=== PATIENT | female | born 1955 | race Caucasian/White ===

== ENCOUNTER 2020-05-29 14:03 | Emergency (ER) | payer MEDICARE, MEDICAID, SELFPAY ==
--- NOTE | ~2020-05-29 | XR_ITS ---
EXAMINATION: XR forearm LT 2V EXAM DATE: 05/29/2020 16:28 INDICATION: Initial encounter following injury, with pain of the left arm. TECHNIQUE: Left forearm frontal and lateral projections obtained and reviewed. There is no prior drew dy for comparison. FINDINGS: There are no acute left forearm fractures or dislocations identified. There is no subcutan eous gas. The soft tissue is unremarkable. There are no radiopaque foreign bodies. IMPRESSION: 1. Left forearm exam without acute osseous findings. Reviewed, dictated and finalized at location A. ERIES ENFORCEMENT OFFICER
--- NOTE | ~2020-05-29 | XR_ITS ---
EXAMINATION: XR femur LT min 2V EXAM DATE: 05/29/2020 16:27 INDICATION: Initial encounter following injury, with pain of the left femur. TECHNIQUE: Left femur frontal and lateral projections of the proximal aspect, frontal and lateral pro jections of the lower aspect for review. There is no prior study for comparison. FINDINGS: There is old left inferior ramus fracture. There is severe left knee, mild left hip primary osteoarthritis. There are no acute fractures or dislocations identified. There is no subcutaneous g as. There are arterial calcifications, arteriosclerosis. There are no radiopaque foreign bodies. IMPRESSION: 1. Left femur exam without acute osseous findings. 2. Severe left knee osteoarthritis. Reviewed, dictated and finalized at location A. RETAILER
--- NOTE | ~2020-05-29 | XR_ITS ---
EXAMINATION: XR humerus LT EXAM DATE: 05/29/2020 16:27 INDICATION: Left arm pain. Several recent falls. Initial encounter. TECHNIQUE: Orthogonal projections left humerus. Correlation is made to left forearm exam same date. FINDINGS: There are no acute left humerus fractures or dislocations identified. There is no subcutan eous gas. The soft tissue is unremarkable. Hardware with left humeral plate, supporting screws, in tact. IMPRESSION: 1. Left humerus exam without acute osseous findings. 2. Intact humeral hardware. Reviewed, dictated and finalized at location A. ING MACHINE OPERATOR ELECTRO GAS
[2020-05-29 14:04] VITALS: BP 171/72; PULSE 63; RESP 12; O2SAT 100
--- NOTE | 2020-05-29 14:17 | PC.NURSE ---
Per longterm RN pt has schizophrenia, bi polar and dementia. Last right arm xray was about 1.5 weeks ago and it was clear. Nurse is requesting a BHU.RN reports behavior has worsened over the last month. RNs name was Salty.
--- NOTE | 2020-05-29 14:30 | PC.NURSE ---
Pt yelling help in the room. Pt checked on and just lying in the bed with no complaints once checked on.
[2020-05-29 15:03] LABS: Add Urine Microscopic? NO; Appearance Urine Clear (Clear); Bilirubin Urine Negative (Negative); Blood Urine Negative (Negative); Color Urine Straw (Yellow); Glucose Urine UA Negative (Negative); Ketones Urine Negative (Negative); Leukocyte Esterase Ur Negative LEU/UL (Negative); Nitrate Urine Negative (Negative); Protein Urine Negative (Negative); Specific Grav Ur 1.013 (1.001-1.035); Urobilinogen Urine Negative mg/dL (<2.0)
--- NOTE | 2020-05-29 15:17 | PC.NURSE ---
ARPITA called ED to update us on her. YFNSaurabh said pt has hx of having a fracture in left arm needing surgery and since then she always says she broke an arm. YFNSaurabh states Jodi is mentally challenged and has hx of dementia and psychiatric emotional dx. ARPITA states her behavior has changed greatly since she was diagnosed with Dementia 1 year ago. ARPITA would like to be updated. Kadi Stiles [phone]
[2020-05-29 15:31] LABS: Basophils Percent Auto 0.7 % (0.2-1.2); Eosinophils Absolute Auto 0.2 K/mm3 (0-0.3); Eosinophils Percent Auto 3.8 % (0-4.4); Hematocrit 30.9 % (37.0-47.0); Hemoglobin 10.6 g/dL (12.0-15.0); Immature Granulocyte Absolute 0.04 K/mm3 (0.00-0.031); Immature Granulocyte Percent A 0.9 % (0-0.5); Lymphocytes Absolute Auto 1.01 K/mm3 (0.9-3.2); Lymphocytes Percent Auto 22.5 % (18.3-44.2); Mean Corpuscular HGB Conc 34.3 g/dl (32-36); Mean Corpuscular Volume 96.3 fl (80-100); Mean Platelet Volume 10.1 fl (7.4-10.4); Monocytes Absolute Auto 0.6 K/mm3 (0.1-0.6); Monocytes Percent Auto 14.3 % (2.6-8.5); Neutrophils Absolute Auto 2.6 K/mm3 (1.3-6.7); Neutrophils Percent Auto 57.8 % (45.5-73.1); Platelet Count Result 161 k/mm3 (150-375); Red Blood Count 3.21 M/mm3 (4.2-5.4); Red Cell Distribution Width 12.6 % (11.5-14.5); White Blood Count 4.5 K/mm3 (4.5-10.0)
[2020-05-29 15:43] LABS: Alanine Aminotransferase 21 U/L (4-35); Albumin Level 3.5 g/dL (3.5-5.1); Alkaline Phosphatase 79 U/L (38-126); Anion Gap 5 mmol/L (8-16); Aspartate Amino Transferase 31 U/L (14-36); Bilirubin,Total 0.3 mg/dL (0.2-1.3); Blood Urea Nitrogen 16 mg/dL (7-17); Calcium 8.5 mg/dL (8.4-10.2); Carbon Dioxide 31 mmol/L (22-30); Chloride 98 mmol/L (98-107); Estimated CRCL calculation 60 ml/min; Estimated Glomerular Filt Rate > 60; Glucose 108 mg/dL (65-105); Potassium 3.8 mmol/L (3.4-5.0); Sodium 134 mmol/L (137-145)
--- NOTE | 2020-05-29 16:14 | ED.FALL ---
HPI - Fall General Chief Complaint: Fall Stated Complaint: R ARM PAIN History of Present Illness HPI Narrative: Brought in by EMS from senior living for left arm pain. She reports that she fainted and thinks that she broke her arm. She reports pain all over. She is not able to provide any additional useable history. [facility] called to say that they believe she is throwing herself on the floor intentionally. They believe that this is the result of her psychiatric disorder. They think that she may be a danger to herself and need psychiatric treatment. Related Data Home Medications Medication Instructions Recorded Confirmed acetaminophen 325 mg capsule 325 mg PO Q6H PRN 05/28/20 aspirin 81 mg tablet,delayed 81 mg PO DAILY 05/28/20 release buspirone 15 mg tablet 15 mg PO TID 05/28/20 cholecalciferol (vitamin D3) 25 25 mcg PO DAILY 05/28/20 mcg (1,000 unit) capsule divalproex 250 mg tablet,delayed 250 mg PO TID tablet 05/28/20 release docusate sodium 100 mg capsule 100 mg PO DAILY 05/28/20 donepezil 10 mg tablet 10 mg PO ONCE 05/28/20 escitalopram oxalate 10 mg tablet 15 mg PO DAILY tablet 05/28/20 ferrous sulfate 325 mg (65 mg 325 mg PO DAILY 05/28/20 iron) tablet,delayed release iloperidone 6 mg tablet 6 mg PO BID 05/28/20 memantine 10 mg tablet 10 mg PO BID 05/28/20 nebivolol 10 mg tablet 10 mg PO DAILY 05/28/20 oxcarbazepine 150 mg tablet 75 mg PO BID tablet 05/28/20 quetiapine 50 mg tablet 50 mg PO DAILY tablet 05/28/20 simvastatin 40 mg tablet 40 mg PO DAILY 05/28/20 Allergies Allergy/AdvReac Type Severity Reaction Status Date / Time No Known Allergies Allergy Unknown Unverified 11/01/16 07:51 Review of Systems Review of Systems: ROS unobtainable: Yes other (unrelieble due to psychiatric disorder) Cardiovascular: Cardiovascular: Denies chest pain Respiratory: Respiratory: Denies dyspnea Neurologic: Reports syncope [facility] Past Medical History Medical History (Updated 05/30/20 @ 00:00 by Background Daemon) Gastro-esophageal reflux disease without esophagitis Mild intellectual disabilities Schizoaffective disorder, bipolar type Family History Family History Mother Family history of diabetes mellitus in first degree relative Family history of heart disease in male family member before age 55 Patient's mother is Father Family history of diabetes mellitus in first degree relative Family history of heart disease in male family member before age 55 Social History Social History Smoking status: Never smoker Alcohol intake: never Exam Const: General: healthy appearing, no acute distress and alert Orientation/consciousness: patient oriented x3 HENMT: Head: normal to inspection Eyes: Pupils: Equal, round and reactive pupils present EOM: EOMs intact bilaterally Neck: Neck: normal visual inspection and no lymphadenopathy Chest: Chest palpation & inspection: no tenderness Resp: Effort & Inspection: normal respiratory effort Auscultation: clear to auscultation bilaterally, no rales, no rhonchi and no wheezes Cardio: Jugular venous distension: no JVD Rate: regular rate Rhythm: regular rhythm Heart sounds: no murmurs GI: Inspection: non-distended GI Palp: Yes Soft to palpation and No Tenderness to palpation present (GI) Skin: General skin exam: normal color Other: excoriations to bilateral arms Neuro: General: patient oriented x3 and moves all extremities Speech: normal speech Extrem: General: normal to inspection and no edema Psych: Appearance: well kempt Affect: normal affect Course Vital Signs Vital signs: Vital Signs Pulse Rate 63 05/29/20 14:04 Respiratory Rate 12 05/29/20 14:04 Blood Pressure 171/72 H 05/29/20 14:04 Pulse Oximetry 100 05/29/20 14:04 Pulse Rate 62 05/29/20 20:22 Respi
[2020-05-29 16:18] LABS: Amphetamine Screen Urine Negative (Negative); Barbiturate Screen Urine Negative (Negative); Benzodiazepines Screen Urine Negative (Negative); Cannabinoid Screen Urine Negative (Negative); Cocaine Screen Urine Negative (Negative); Methadone Screen Urine Negative (Negative); Opiate Screen Urine Negative (Negative); Phencyclidine Screen Urine Negative (Negative)
[2020-05-29 17:00] VITALS: BP 169/65; PULSE 62; O2SAT 100
[2020-05-29 17:07] LABS: Ethanol < 10 mg/dL (<10)
[2020-05-29 18:42] VITALS: BP 155/74; PULSE 55; O2SAT 100
--- NOTE | 2020-05-29 20:00 | PC.NURSE ---
[facility] facility to give report. 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 Charge nurse made aware
[2020-05-29 20:22] VITALS: BP 126/51; PULSE 62; RESP 18; O2SAT 99
== END 2020-05-29 20:40 ==
PROVIDERS: Emergency Provider Emergency Medicine; PCP Internal Medicine
DX: M79.602 Pain in left arm (principal); F25.0 Schizoaffective disorder, bipolar type; K21.9 Gastro-esophageal reflux disease without esophagitis; F79 Unspecified intellectual disabilities; Z79.82 Long term (current) use of aspirin; X83.8XXA Intentional self-harm by other specified means, initial encounter; Z79.899 Other long term (current) drug therapy
CPT/HCPCS: 36415; 73060; 73090; 73552; 80053; 80307; 81003; 84443; 85025; 99284

== ENCOUNTER 2020-07-09 17:27 | Outpatient (NON) | payer MEDICARE, SELFPAY ==
[2020-07-09 17:49] LABS: Hematocrit 28.9 % (35.0-49.0); Hemoglobin 9.8 g/dL (12.0-15.0); Mean Corpuscular HGB Conc 33.9 g/dL (32.0-36.0); Mean Corpuscular Hemoglobin 31.9 pg (27.0-31.0); Mean Corpuscular Volume 94.1 fL (78.0-102.0); Platelet Count Result 162 K/mm3 (150-420); Red Blood Count 3.07 M/mm3 (4.20-5.40); White Blood Count 5.6 K/mm3 (4.8-10.8)
[2020-07-09 17:52] LABS: Anion Gap 8 mmol/L (8-16); Blood Urea Nitrogen 11 mg/dL (7-18); Calcium 8.1 mg/dL (8.5-10.1); Carbon Dioxide 25 mmol/L (21-32); Chloride 93 mmol/L (98-108); Estimated Glomerular Filt Rate > 60; Glucose 109 mg/dL (70-99); Osmolality Calculated 262 mOsm/kg (285-295); Potassium 4.3 mmol/L (3.5-5.1); Sodium 126 mmol/L (136-145)
[2020-07-09 20:00] LABS: Band Neutrophils Percent 0 % (0-6); Lymphocytes Absolute Manual 0.89 K/mm3 (1.1-4.5); Lymphocytes Percent Manual 16 % (18-44); Monocytes Absolute Manual 0.78 K/mm3 (0.1-0.90); Monocytes Percent Manual 14 % (3-9); Myelocytes Percent 1 %; Neutrophils Absolute Manual 3.86 K/mm3 (1.7-7.2); Neutrophils Percent Manual 69 % (46-73); Platelet Estimate Adequate (Adequate); Total Cells Counted 100
== END 2020-07-09 17:28 ==
PROVIDERS: Visit Provider Internal Medicine
DX: N39.0 Urinary tract infection, site not specified (principal)
CPT/HCPCS: 36415; 80048; 85025

== ENCOUNTER 2020-07-12 10:54 | Outpatient (NON) | payer MEDICARE, SELFPAY ==
[2020-07-12 11:19] LABS: Hemoglobin 9.8 g/dL (12.0-15.0); Mean Corpuscular HGB Conc 33.8 g/dL (32.0-36.0); Mean Corpuscular Hemoglobin 32.6 pg (27.0-31.0); Mean Corpuscular Volume 96.3 fL (78.0-102.0); Mean Platelet Volume 9.8 fl (9.2-11.8); Platelet Count Result 161 K/mm3 (150-420); Red Blood Count 3.01 M/mm3 (4.20-5.40); Red Cell Distribution Width 12.4 % (11.6-14.4); White Blood Count 4.5 K/mm3 (4.8-10.8)
[2020-07-12 11:35] LABS: Hemoglobin A1C 5.2 % (<5.7)
[2020-07-12 11:44] LABS: Anion Gap 7 mmol/L (8-16); Blood Urea Nitrogen 13 mg/dL (7-18); Calcium 8.6 mg/dL (8.5-10.1); Carbon Dioxide 26 mmol/L (21-32); Chloride 98 mmol/L (98-108); Cholesterol 127 mg/dL (0-200); Estimated Glomerular Filt Rate > 60; Glucose 96 mg/dL (70-99); HDL Direct 68 mg/dL (40-60); LDL Cholesterol Calculated 52 mg/dL (<130); Osmolality Calculated 272 mOsm/kg (285-295); Potassium 4.3 mmol/L (3.5-5.1); Sodium 131 mmol/L (136-145); Thyroid Stimulating Hormone 0.84 uIU/mL (0.36-3.74); Triglycerides 34 mg/dL (0-150)
[2020-07-12 12:41] LABS: Neutrophils Percent Manual 51 % (46-73); Total Cells Counted 100
[2020-07-12 12:42] LABS: Band Neutrophils Percent 0 % (0-6); Basophils Absolute Manual 0.04 K/mm3 (0-0.1); Basophils Percent Manual 1 % (0-1); Eosinophils Absolute Manual 0.09 K/mm3 (0.02-0.5); Eosinophils Percent Manual 2 % (1-6); Lymphocytes Absolute Manual 1.08 K/mm3 (1.1-4.5); Lymphocytes Percent Manual 24 % (18-44); Metamyelocytes Percent 0 %; Monocytes Absolute Manual 0.94 K/mm3 (0.1-0.90); Monocytes Percent Manual 21 % (3-9); Myelocytes Percent 1 %; Neutrophils Absolute Manual 2.29 K/mm3 (1.7-7.2)
[2020-07-12 12:43] LABS: Platelet Estimate Adequate (Adequate)
[2020-07-14 22:40] LABS: T4 Thyroxine 4.6 mcg/dL (5.1-11.9)
[2020-07-17 13:34] LABS: Total Triiodothyronine (T3) 96 ng/dL (76-181)
== END 2020-07-12 10:55 ==
LOC: CHSLAB 10:55
PROVIDERS: Visit Provider Internal Medicine
DX: D64.9 Anemia, unspecified (principal); E87.0 Hyperosmolality and hypernatremia; Z79.899 Other long term (current) drug therapy
CPT/HCPCS: 36415; 80048; 80061; 80164; 83036; 84436; 84443; 84480; 85025

== ENCOUNTER 2020-07-19 11:02 | Outpatient (NON) | payer MEDICARE, SELFPAY ==
[2020-07-19 11:28] LABS: Anion Gap 6 mmol/L (8-16); Blood Urea Nitrogen 16 mg/dL (7-18); Calcium 8.3 mg/dL (8.5-10.1); Carbon Dioxide 29 mmol/L (21-32); Chloride 95 mmol/L (98-108); Estimated Glomerular Filt Rate > 60; Glucose 74 mg/dL (70-99); Osmolality Calculated 270 mOsm/kg (285-295); Potassium 4.3 mmol/L (3.5-5.1); Sodium 130 mmol/L (136-145)
== END 2020-07-19 11:03 ==
PROVIDERS: Visit Provider Internal Medicine
DX: R79.89 Other specified abnormal findings of blood chemistry (principal)
CPT/HCPCS: 36415; 80048

== ENCOUNTER 2020-08-12 10:33 | Outpatient (NON) | payer MEDICARE, SELFPAY ==
[2020-08-12 11:40] LABS: Thyroid Stimulating Hormone 1.87 uIU/mL (0.36-3.74)
== END 2020-08-12 10:34 ==
LOC: CHSLAB 10:35
PROVIDERS: Visit Provider Internal Medicine
DX: E78.5 Hyperlipidemia, unspecified (principal); I10 Essential (primary) hypertension; F33.9 Major depressive disorder, recurrent, unspecified; F41.9 Anxiety disorder, unspecified; F20.0 Paranoid schizophrenia; K21.9 Gastro-esophageal reflux disease without esophagitis
CPT/HCPCS: 36415; 84439; 84443

== ENCOUNTER 2020-08-25 16:41 | Outpatient (NON) | payer MEDICARE, SELFPAY ==
[2020-08-25 17:07] LABS: Add Urine Microscopic? YES; Appearance Urine Clear (Clear); Bilirubin Urine Negative (Negative); Blood Urine Negative (Negative); Color Urine Yellow (Yellow); Glucose Urine UA Negative (Negative); Ketones Urine Negative (Negative); Leukocyte Esterase Ur Negative LEU/UL (Negative); Nitrate Urine Negative (Negative); Protein Urine Negative (Negative); pH Urine 6.5 (5.0-8.0)
[2020-08-25 17:40] LABS: Bacteria Urine Trace /hpf; RBC Urine None seen /hpf (0-2); Squamous Epithelial Cell Urine Rare /hpf (Few); WBC Urine None seen /hpf (0-3)
== END 2020-08-25 16:42 ==
PROVIDERS: PCP Internal Medicine; Visit Provider Internal Medicine
DX: R41.82 Altered mental status, unspecified (principal)
CPT/HCPCS: 81001

== ENCOUNTER 2020-08-30 16:14 | Emergency (ER) | payer MEDICARE, MEDICAID, SELFPAY ==
[2020-08-30 16:24] VITALS: BP 160/69; PULSE 64; RESP 18; TEMP 36.4; O2SAT 100
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
[2020-08-30 16:53] LABS: Basophils Percent Auto 0.8 % (0.2-1.2); Eosinophils Absolute Auto 0.1 K/mm3 (0-0.3); Eosinophils Percent Auto 1.4 % (0-4.4); Hematocrit 31.6 % (37.0-47.0); Immature Granulocyte Absolute 0.05 K/mm3 (0.00-0.031); Lymphocytes Absolute Auto 0.95 K/mm3 (0.9-3.2); Lymphocytes Percent Auto 19.5 % (18.3-44.2); Mean Corpuscular HGB Conc 34.8 g/dl (32-36); Mean Corpuscular Hemoglobin 32.8 pg (26-34); Mean Corpuscular Volume 94.3 fl (80-100); Mean Platelet Volume 9.1 fl (7.4-10.4); Monocytes Absolute Auto 0.9 K/mm3 (0.1-0.6); Monocytes Percent Auto 17.5 % (2.6-8.5); Neutrophils Absolute Auto 2.9 K/mm3 (1.3-6.7); Neutrophils Percent Auto 59.8 % (45.5-73.1); Platelet Count Result 144 k/mm3 (150-375); Red Blood Count 3.35 M/mm3 (4.2-5.4); Red Cell Distribution Width 13.1 % (11.5-14.5); White Blood Count 4.9 K/mm3 (4.5-10.0)
[2020-08-30 17:04] LABS: Anion Gap 7 mmol/L (8-16); Blood Urea Nitrogen 17 mg/dL (7-17); Calcium 8.6 mg/dL (8.4-10.2); Carbon Dioxide 27 mmol/L (22-30); Chloride 97 mmol/L (98-107); Estimated CRCL calculation 61 ml/min; Estimated Glomerular Filt Rate > 60; Glucose 106 mg/dL (65-105); Potassium 3.7 mmol/L (3.4-5.0); Sodium 131 mmol/L (137-145)
[2020-08-30 17:51] LABS: Valproic Acid 76.4 ug/mL (50-120)
[2020-08-30 18:14] LABS: Add Urine Microscopic? NO; Appearance Urine Clear (Clear); Bilirubin Urine Negative (Negative); Blood Urine Negative (Negative); Color Urine Straw (Yellow); Glucose Urine UA Negative (Negative); Ketones Urine Negative (Negative); Leukocyte Esterase Ur Negative LEU/UL (Negative); Nitrate Urine Negative (Negative); Protein Urine Negative (Negative); Specific Grav Ur 1.014 (1.001-1.035); Urobilinogen Urine Negative mg/dL (<2.0)
[2020-08-30] MEDS: OLANZapine DISPERTAB 5 MG 10 MG PO (18:14)
[2020-08-30 18:34] VITALS: BP 167/71; PULSE 67; RESP 18; O2SAT 98
[2020-08-30] MEDS: traZODone HCL 50 MG TABLET PO (18:59)
--- NOTE | 2020-08-30 19:00 | PC.NURSE ---
[facility] accepted return to [facility] trip # [id number]
--- NOTE | 2020-08-30 19:44 | PC.NURSE ---
Bedside report received from [facility]. Pt resting comfortably on stretcher. Denies needs at present. When pt asked why she was here, states they said I was cussing! . Pt calm at present.
--- NOTE | 2020-08-30 20:30 | PC.NURSE ---
Pt yelling out room 3 room 3 room 3 . Reoriented and made aware that awaiting EMS arrival to return her to home.
--- NOTE | 2020-08-30 21:10 | PC.NURSE ---
Pt noted to be [place], naked on bed, diaper noted on floor. Bed alarm remains in place, call light close. Pt offered drink and bathroom, and refuses. Pt again states room 3 room 3 room 3 repeatedly.
--- NOTE | 2020-08-30 21:59 | PC.NURSE ---
Sitter placed at bedside for patient safety.
--- NOTE | 2020-08-30 22:28 | PC.NURSE ---
Per Tamiko Sequeira RN, [facility] will be here now for transport at approx 12 or 12:30 am.
--- NOTE | 2020-08-30 22:36 | PC.NURSE ---
Pt noted to be yelling out intermittently. Pt's meds from [facility] ordered and awaiting arrival from pharmacy.
[2020-08-30] MEDS: LORazepam (*CRX) 0.5 MG TABLET PO (22:53)
[2020-08-30] MEDS: DONEPEZIL HCL 10 MG TABLET PO (22:53)
--- NOTE | 2020-08-30 23:51 | PC.NURSE ---
Pt asleep quietly on stretcher. Continue to await transport back to [facility].
--- NOTE | 2020-08-31 00:41 | PC.NURSE ---
Pt remains asleep on stretcher. Per charge master coordinator, EMS will not be here to tranport the patient until approx 2:30 or 3pm.
--- NOTE | 2020-08-31 01:15 | PC.NURSE ---
Pt sleeping soundly on stretcher. Continue to await EMS arrival.
--- NOTE | 2020-08-31 02:30 | PC.NURSE ---
[facility] called with updated ETA. They will be at this facility at approx 0400.
--- NOTE | 2020-08-31 04:22 | PC.NURSE ---
Report to [facility] to transport pt to [facility].
== END 2020-08-31 04:33 ==
PROVIDERS: Emergency Provider Emergency Medicine; PCP Internal Medicine
DX: G30.9 Alzheimer's disease, unspecified (principal); F02.81 Dementia in other diseases classified elsewhere, unspecified severity, with behavioral disturbance; K21.9 Gastro-esophageal reflux disease without esophagitis; F25.0 Schizoaffective disorder, bipolar type; F79 Unspecified intellectual disabilities
CPT/HCPCS: 36415; 51701; 80048; 80164; 81003; 84443; 85025; 99283; A9270